=== PATIENT | male | born 1955 | race Caucasian/White ===

== ENCOUNTER 2016-07-09 18:53 | Emergency (ER) | payer MEDICARE, MEDICAID ==
[~2016-07-09 18:53] MED LIST: ASA CHILDREN'S81 MG PO; ASPIRIN EC81 MG PO; BENZTROPINE MESYLATE PO; BUMEX DPS1 MG PO; CARBIDOPA-LEVO1 EAC6 PO; CELEXA DPS20 MG PO; CELEXA20 MG PO; COGENTIN DPS0.5 MG PO; COGENTIN DPS1 MG PO; DEMADEX20 MG PO; FEOSOL-DPS325 MG PO; FERROUS SULFAT325 MG PO; FLOMAX DPS0.4 MG PO; IODOSORB 0.9% TP; IRON325 M1 PO; LEVEMIR100 UNIT/1 SQ; LIPITOR DPS40 MG PO; LIPITOR40 MG PO; LOPRESSOR 25 MG PO; LOPRESSOR DPS50 MG PO; LOPRESSOR50 MG PO; METAMUCIL SF P3.4 GM PO; METOPROLOL TART25 MG PO; MIRALAX PACKET17 GM PO; MIRAPEX DPS0.25 MG PO; PANTOPRAZOLE PO; PLAVIX75 MG PO; PROTONIX40 MG PO; SENOKOT DPS8.6 MG PO; SINEMET 25-1001 EACH PO; SINEMET 25/1001 TAB PO; SYMMETREL-DPS100 MG PO; ZAROXOLYN5 MG PO
--- NOTE | 2016-07-11 23:22 | ER ---
ADMIT: 07/09/2016 RM/LOC: ER [facility] MR#: [id number] 2620 [facility] [address] [place], [place] [address] JOSEPHINE CASTRO [facility] [place] [address] Emergency Room Report SEX: M AGE: 60 : 1955 DATE: 07/09/2016 ADDENDUM: CHIEF COMPLAINT: Right leg pain and swelling and erythema. HISTORY OF PRESENT ILLNESS: This is a 60-year-old. These symptoms started about 3 weeks ago. His right leg has large abscess on it that he says that has been progressively worsening over the last 3 weeks and now his calf is more red and swollen. PAST MEDICAL HISTORY: Diabetes, Parkinson's, neuropathy, and chronic kidney disease stage 4. MEDICATIONS: Please see nurse's note. ALLERGIES: NO KNOWN ALLERGIES. SOCIAL HISTORY: Denies any drug or alcohol use or smoking. FAMILY HISTORY: Noncontributory. REVIEW OF SYSTEMS: CONSTITUTIONAL: Denies any fevers, chills, or sweats. CARDIOVASCULAR/RESPIRATORY: Denies any chest pain or shortness of breath. GASTROINTESTINAL/GENITOURINARY: Denies any nausea, vomiting, or diarrhea. MUSCULOSKELETAL: The only complaint is this abscess on his right lower leg and the swelling of the lower leg. All systems otherwise negative. PHYSICAL EXAMINATION: VITAL SIGNS: Blood pressure 127/66, pulse is 112, respirations 21, temperature is 98.7 tympanic, saturation of oxygen 96% on room air. GENERAL APPEARANCE: He is in no acute distress and alert. HEENT: Pharynx is moist with no tonsillar swelling or exudate. NECK: Supple. HEART: Slightly tachycardic, but no murmurs, rubs, or gallops. LUNGS: CTA bilaterally. No wheezes, rales, or rhonchi. ABDOMEN: Soft, nontender. SKIN: When examining his right lower leg, he is slightly erythemic and warm. There is an obvious abscess to the mid to posterior portion of his calf with minimal swelling. NEURO AND PSYCH: He is alert and oriented x3. Mood and affect normal. COURSE IN THE EMERGENCY ROOM: Sepsis protocol was ordered. He has A positive blood. Chest x-ray is negative for any acute findings. EKG showed sinus tach at a rate of 108. His procalcitonin is 0.11. CMP is normal except for a sodium of 133, BUN is 77, glucose of 215, creatinine 3.7, which is chronic for ADMIT: 07/09/2016 RM/LOC: ER [facility] MR#: [id number] [address] [address] JOSEPHINE CASTRO [address] [place] [address] [place], [place] [address] Emergency Room Report SEX: M AGE: 60 : 1955 him. His MB is 5.2. His troponin is 0.062. He denies any chest pain here at this stay. Lactic acid is normal at 0.9. PT/INR normal. CBC is normal except for hemoglobin of 8.1 and hematocrit 23.8. Ultrasound was done, it is negative for DVT. I did a procedure of the incision and drain. Please see T- sheet for that information. I did speak with Dr. Hamilton regarding this patient. Since he does not have any chest pain, we think the elevated troponin is secondary to his chronic kidney disease. He has not tried any oral antibiotics yet, and his blood work is essentially pretty negative, so at this time we feel okay sending him home. I am sending him home on doxycycline and Keflex. CLINICAL IMPRESSION: Abscess to the right lower leg with cellulitis. TIFFANIE Robles / Fili Rock MD / manan JOB #: [id number] CC: Nolan Torres MD, Attending Physician Med Ray MD, Family Physician
[2016-07-24] MEDS ORDERED: LIPITOR DPS40 MG PO (14:15)
[2016-07-24] MEDS ORDERED: PLAVIX75 MG PO (14:16)
[2016-07-24] MEDS ORDERED: CARBIDOPA-LEVO1 EAC6 PO (14:16)
[2016-07-24] MEDS ORDERED: CELEXA DPS20 MG PO (14:16)
[2016-07-24] MEDS ORDERED: METOPROLOL TART25 MG PO (14:17)
[2016-07-24] MEDS ORDERED: FLOMAX DPS0.4 MG PO (14:17)
[2016-07-24] MEDS ORDERED: PROTONIX40 MG PO (14:17)
[2016-07-24] MEDS ORDERED: MIRAPEX DPS0.25 MG PO (14:17)
[2016-07-24] MEDS ORDERED: ASPIRIN EC81 MG PO (14:18)
[2016-07-24] MEDS ORDERED: METAMUCIL PACK3.4 GM PO (14:18)
[2016-07-24] MEDS ORDERED: DEMADEX20 MG PO (14:18)
[2016-07-24] MEDS ORDERED: MIRALAX PACKET17 GM PO (14:19)
[2016-07-24] MEDS ORDERED: SENOKOT DPS8.6 MG PO (14:19)
[2016-07-24] MEDS ORDERED: ZAROXOLYN5 MG PO (14:19)
[2016-07-24] MEDS ORDERED: LEVEMIR FL100 UNIT/1 SQ (14:19)
[2016-07-24] MEDS ORDERED: KEFLEX-DPS500 MG PO (14:20)
[2016-07-24] MEDS ORDERED: CIPRO DPS250 MG PO (14:20)
[2016-09-01] MEDS ORDERED: HYDROCHLOROTHIA25 MG PO (11:29)
[2016-09-01] MEDS ORDERED: CLEOCIN HCL150 MG PO (11:30)
[2016-09-01] MEDS ORDERED: CITROMA296 ML PO (11:31)
[2016-12-10] MEDS ORDERED: SENOKOT S1 TAB PO (12:06)
[2016-12-10] MEDS ORDERED: GLYCOLAX527 GM PO (12:08)
[2017-02-28] MEDS ORDERED: VITAMIN D50000 UNIT PO (09:37)
[2017-02-28] MEDS ORDERED: AUGMENTIN 500-1 EACH PO (09:38)
== END 2016-07-09 23:40 | disposition home or self-care (01) ==
LOC: ER 18:53
PROC: 0H9KXZZ Drainage of Right Lower Leg Skin, External Approach (ICD-10-PCS; principal; 2016-07-09)
DX: L02.415 Cutaneous abscess of right lower limb (principal); E11.9 Type 2 diabetes mellitus without complications; Z79.82 Long term (current) use of aspirin; Z79.899 Other long term (current) drug therapy

== ENCOUNTER 2016-07-10 15:29 | Inpatient (IN) | payer MEDICARE, MEDICAID ==
[~2016-07-10] VITALS: Ht 170.2 cm; Wt 75.6 kg
--- NOTE | ~2016-07-10 | CO ---
ADMIT: 07/10/2016 RM/LOC: 426 [facility] MR#: [id number] 2620 [facility] [address] [place], [place] [address] JOSEPHINE CASTRO [facility] [place], [place] [address] Consultation SEX: M AGE: 60 : 1955 DATE OF CONSULTATION: 07/12/2016 ATTENDING PHYSICIAN: Med Ray MD CONSULTING PHYSICIAN: Mikie Jo MD SUBJECTIVE: The patient is a 60-year-old male, who has had several week history of swelling and pain to the back of his calf, presented to the ER, where the area was incised and purulence detected. He has been admitted to the hospital the last couple of days on IV antibiotics. His white blood cell count is trending down but he got an MRI scan, which shows an abscess that is in the subcutaneous tissue and even into the Achilles tendon area. PHYSICAL EXAMINATION: Over the dorsal aspect of the patient's Achilles tendon about 1 handbreadth proximal to the calcaneus. There is a swelling and maceration of some skin around an ulcer looking area. He has some purulent drainage. His skin is reddened and is very woody. The patient is a severe diabetic and has significant peripheral vascular disease. X-rays show the soft tissue swelling posteriorly, no problems with the bony anatomy. Again, MRI scan showed an abscess formation and this going from the subcutaneous tissue into the Achilles tendon area. ASSESSMENT AND PLAN: Right posterior soft tissue abscess. At this point in time, the best thing to do is open this area widely, irrigate it, debride it, and pack it and possibly repeat the procedure. Down the line, I would suspect the patient is at high risk for having to turn this into a below the knee amputation. Also, if we were able to get things cleaned up his skin may not live and he may have to have some type of the soft tissue coverage such as a skin graft or wound VAC, I would leave that to General surgery, but the first thing is to open this area, irrigate it, debride it and pack it. The patient understands the risks and benefits of the surgical intervention and desires to proceed. I went over everything with him with an spanish interpreter/translator here in the hospital. Mikie Jo MD/ manan JOB #: [id number] CC: Med Ray MD, Attending Physician Med Ray MD, Family Physician
--- NOTE | ~2016-07-10 | WND ---
ADMIT: 07/10/2016 RM/LOC: 426 [facility] MR#: [id number] [address] [address] JOSE[address] [facility] [place] [address] Wound Care Clinic SEX: M AGE: 60 : 1955 DATE OF VISIT: 07/17/2016 TIME OF VISIT: 45 minutes. REASON FOR VISIT: Possible right heel abscess. HISTORY OF PRESENT ILLNESS: Josephine is a 60-year-old male who was initially seen by Wound Care on July 11, 2016, for an ulcer to his right lower extremity. He was seen in the ER. At which time, they lanced it and noticed a large amount of purulent drainage. On July 10, 2016, when Wound Care saw him, we requested that they just lightly pack the wound bed with ribbon gauze and have the staff change it daily. On July 15, 2016, he went to surgery with Dr. Jo for irrigation and debridement of subcutaneous tissue, fascia, and muscle in the wound VAC was placed. Wound Care is seen today as they are having a difficult time sustaining the VAC seal. OBJECTIVE: VITAL SIGNS: Blood pressure 126/69, pulse 75, pulse ox 92%, respirations 16, temperature 96.1 degrees Fahrenheit. GENERAL: Assessment reveals an alert and oriented 60-year-old male, in no acute distress. He is evaluated sitting in his chair. Wound VAC is currently lost its seal at approximately 11 o'clock. The old wound VAC dressing was removed. Wound bed appears to be 95% granulate, 10% tendon in the middle running longitudinal in the wound bed. No periwound erythema is noted. It bleeds easily. Wound bed is approximately 7.5 cm in length x 3.5 cm in width. There is no odor noted. The patient does have an old scar to his right heel, which is from a previous ulcer where he was followed in Wound Care in 2013. Right lower extremity was cleansed well with antimicrobial soap and water. Then, the wound bed was irrigated copiously with 30 mL of saline. I applied VAC drape to the periwound skin. Then, I applied Adaptic over the tendon and the wound bed. Then, I applied black foam. TRAC pad was applied. Wound VAC was turned on at 125 mmHg continuous. Good seal was noted. ASSESSMENT: Right lower extremity abscess status post incision and drainage in the ER on 07/10/2016 and surgical debridement by Dr. Jo on July 15, 2016. PLAN: We will continue with the wound VAC. I understand the patient is going to discharge to [facility]. They can use Thera-VAC there and change on Friday, Friday, and Friday. I would like to thank Dr. Ray for allowing us to participate in Layne' care. Lucrecia Ramos APRN/ manan JOB #: [id number] CC: Med Ray MD, Attending Physician Med Ray MD, Family Physician
--- NOTE | ~2016-07-10 | WND ---
ADMIT: 07/10/2016 RM/LOC: 426 [facility] MR#: [id number] 2620 [facility] [address] [place] [phone] JOSEPHINE CASTRO [address] [place] [address] [place] [address] Wound Care Clinic SEX: M AGE: 60 : 1955 DATE OF VISIT: 07/11/2016 TIME OF VISIT: 25 minutes. HISTORY OF PRESENT ILLNESS: Josephine is a [id number]-[id number] 60-year-old male, who presents to the emergency room for a 3-week history of right leg pain and swelling with erythema. In the ER, it was noted that he had a large abscess on the posterior right calf. In the emergency room, they lanced it and noted a large amount of purulent fluid. He was admitted to the hospital for severe cellulitis and diabetic ulcer, advanced Parkinson disease, acute on chronic diastolic heart failure exacerbation, chronic kidney disease stage 4 to 5, diabetes type 2, on insulin, and peripheral vascular disease likely complicating his lower extremity wound. PAST MEDICAL HISTORY: 1. Advanced Parkinson disease. 2. Chronic kidney disease stage 4 to 5. 3. Chronic artery disease, current medical management. 4. Diastolic heart failure. 5. Depression. 6. Diabetic retinopathy. 7. Diabetes type 2, recently started on insulin. 8. History of extended spectrum beta-lactamase bacteremia. 9. Chronic recurrent hyperkalemia. 10.Peripheral vascular disease, severe. 11.Anemia of chronic disease. 12.Depression. PAST SURGICAL HISTORY: He had a stent placed in his right lower extremity. FAMILY HISTORY: Negative for diabetes or hypertension. SOCIAL HISTORY: He lives at home with his nephew. He denies smoking or alcohol abuse. He denies illicit drug use. MEDICATIONS: PHYSICAL EXAMINATION: VITAL SIGNS: Blood pressure 125/66, pulse ox 97%, pulse 99, respirations 16, temp 97.5 degrees Fahrenheit on room air. ASSESSMENT: Assessment reveals an alert, 60-year-old male, who is sitting in the recliner and talking on the telephone. He currently has a bloody nose that he is trying to stop. Assessment of the right lower extremity reveals a full-thickness wound on posterior calf. The ulcer itself measures 10 cm in length by 8 cm in width with a dry white/reveles crest, where they lanced it, measures 2.5 cm in length x 2 cm in width x 1.5 cm in depth. There is undermining at 6 o'clock of 1.5 cm, at 9 o'clock of 1.9 cm, and at 3 o'clock of 4 cm. The tissue where it was lanced is colorado/red in color. Foot circumference is 24 cm, ankle circumference is 24 cm, calf circumference is 31 ADMIT: 07/10/2016 RM/LOC: 426 [facility] MR#: [id number] [address] [place] [phone] JOSEPHINE CASTRO [address] [place] [address] Wound Care Clinic SEX: M AGE: 60 : 1955 cm. The patient has 1+ pedal pulse. 2+ pitting edema to the right lower extremity. ASSESSMENT: 1. Abscess to right lower extremity. 2. Diabetic ulcer with severe cellulitis. 3. Chronic kidney disease stage 4 to 5. 4. Diabetes mellitus type 2, recently started on insulin. 5. Peripheral vascular disease. PLAN: Staff will perform wound care dressing changes as I did today at my visit. They will wash his right lower extremity with soap and water. They need to irrigate the wound to the posterior right calf with saline. I would like them to lightly pack the wound with ribbon gauze. They will change daily and as needed. They can apply a Mepilex border dressing. The patient can follow up in outpatient Wound Clinic upon discharge. I would like to thank Dr. Ray for allowing us to participate in his care. Lucrecia Ramos APRN/ manan JOB #: [id number] CC: Med Ray MD, Attending Physician Med Ray MD, Family Physician
--- NOTE | 2016-07-13 09:59 | HP ---
ADMIT: 07/10/2016 RM/LOC: 426 [facility] MR#: [id number] [address] [facility] [address] [place], [place] [address] JOSEPHINE CASTRO [facility] [place], [place] [address] History and Physical SEX: M AGE: 60 : 1955 DATE OF SERVICE: CHIEF COMPLAINT: Swelling in his legs and shortness of breath. HISTORY OF PRESENT ILLNESS: The patient is a 60-year-old, [facility] very well known to me, who reported to clinic today for followup. He had been in the emergency room the evening before. He had a new large swelling in his right lower extremity. Draining purulent fluid. They reportedly lanced it in the ER and he went home on some oral antibiotics. He reports since that time, his swelling is less, but still very prominent. He has worsened edema in his lower extremities over the last two weeks. He has been very adherent with his medications. Unclear but it sounds like he has had a higher sodium diet. Increasing shortness of breath. Increasing abdominal bloating. Orthopnea reported. Decreased mobility. No new chest pain. No fevers. No chills reported. REVIEW OF SYSTEMS: As per HPI. Otherwise, fully reviewed and negative. PAST MEDICAL HISTORY: 1. Advanced Parkinson disease. 2. Chronic kidney disease, stage 4 to 5. 3. Coronary artery disease with current medical management. 4. Diastolic heart failure. 5. Depression. 6. Diabetic retinopathy. 7. Diabetes type 2, recently restarted on insulin. 8. History of extended spectrum beta-lactamase bacteremia. 9. Hyperkalemia. 10.Chronic recurrent hyperkalemia. 11.Peripheral vascular disease, severe. 12.Anemia of chronic disease. 13.Depression. PAST SURGICAL HISTORY: He has had a stent in his right lower extremity. FAMILY HISTORY: Negative for diabetes or hypertension. SOCIAL HISTORY: Lives at home with his nephew. He is nonsmoker. Nondrinking. MEDICATIONS: Please refer to list for full details. He is on: 1. Metoprolol. 2. Protonix. 3. Mirapex. 4. Flomax. 5. Demadex. 6. Aspirin. 7. Hydrochlorothiazide. 8. Plavix. ADMIT: 07/10/2016 RM/LOC: 426 [facility] MR#: [id number] [address] [address] JOSEPHINE CASTRO [address] [place] [address] History and Physical SEX: M AGE: 60 : 1955 9. Celexa. 10.Carbidopa. 11.Levodopa. Please see list for full details. PHYSICAL EXAMINATION: VITAL SIGNS: Temperature 98.6, pulse 100, respiratory rate 20, blood pressure 112/60, and O2 saturation 96% on room air. GENERAL: He is alert and oriented x3. No acute distress. Pleasant as always. Weight was 165 pounds which is 11 pounds higher than his normal. He looks little more uncomfortable. HEENT: Normocephalic, atraumatic. Pupils are equal, round, and reactive to light and accommodation. Extraocular muscles intact. Moist mucous membranes. No icterus. NECK: No lymphadenopathy. Trachea midline. LUNGS: Clear to auscultation bilaterally with some very fine bibasilar rales present posteriorly. HEART: Regular rate and rhythm. No murmurs, rubs, or gallops. ABDOMEN: Soft and nontender. Slightly distended. Normal bowel sounds. EXTREMITIES: He has 2 to 3+ lower extremity edema present bilateral lower extremities. This is much worse than his baseline. He has a large right- sided roughly 6 x 5 cm oval-shaped swelling in his medial distal right leg. Draining purulent material. Mildly tender. Foul-smelling. This is superior to his ankle. NEUROLOGICAL: He has resting parkinsonian tremor, which is about at his baseline. No other new focal deficits noted. LABORATORY AND X-RAY DATA: Lab work drawn yesterday. Creatinine 3.7, BUN 77, AST and ALT within normal limits. Troponin 0.06, hemoglobin 8.1, white count normal. Sodium 133. Lactic acid is normal. Procalcitonin is 0.11. His cultures done from the ER visit last night are preliminarily showing growth present. Moderate white blood cells and some few gram-negative rods. Blood cultures are negative thus far. ASSESSMENT AND PLAN: 1. Severe cellulitis and diabetic ulcer. 2. Advanced Parkinson disease. 3. Acute on chronic diastolic heart failure exacerbation. 4. Chronic kidney disease, stage 4 to 5. 5. Diabetes type 2, on insulin therapy. ADMIT: 07/10/2016 RM/LOC: 426 [facility] MR#: [id number] [address] [place] [address] JOSEPHINE CASTRO [address] [place] [id number] History and Physical SEX: M AGE: 60 : 1955 6. Peripheral vascular disease, likely complicating his lower extremity wound. PLAN: At this point in time, he has had resistant skin infections in the past. We will admit him for IV antibiotics given the severity of his wound and severe peripheral vascular disease. He is close monitoring, wound care, and wound consult. We will ask Nephrology to see him. He is up 11 pounds despite adhering to his medications. I really wonder if he is at the point of dialysis as he may not be responsive to loop diuretics anymore and volume is clearly an issue. He is complicating his care and clearly causing his ulcer and wound to his lower extremity. We will see what Nephrology thinks as well. We will do some IV diuresis tonight. Med Ray MD/ manan JOB #: [id number] CC: Med Ray MD, Attending Physician Med Ray MD, Family Physician
--- NOTE | 2016-07-16 15:25 | OR ---
ADMIT: 07/10/2016 RM/LOC: 426 [facility] MR#: [id number] [address] [facility] [address] [place], [place] [address] JOSEPHINE CASTRO [facility] [place], [place] [address] Operative/Delivery Room Report SEX: M AGE: 60 : 1955 SURGERY DATE: 07/13/2016 SURGEON: Mikie Jo MD PREOPERATIVE DIAGNOSIS: Right lower extremity abscess. POSTOPERATIVE DIAGNOSIS: Right lower extremity abscess. PROCEDURE PERFORMED: Right lower extremity irrigation and debridement and packing of lower extremity abscess. ANESTHESIA: General. ESTIMATED BLOOD LOSS: Minimal. FLUIDS: Per anesthetic record. COMPLICATIONS: None. DRAINS: None. TOURNIQUET TIME: 24 minutes. CONDITION ON DISCHARGE: Patient returned to the recovery room in fair condition. INDICATION: The patient has abscess formation of the right lower extremity, posteriorly along the subcutaneous tissue and into his Achilles tendon. The patient is a severe diabetic. He has been on antibiotics, continues to have collection per MRI scan. The best thing to do is to irrigate and debride this area out and pack it, possibly do repeat irrigation and debridement and possible culture versus wound VAC secondarily. The patient understands the risks and benefits of the surgical intervention and desires to proceed. DESCRIPTION OF THE PROCEDURE: The patient was taken to the OR, underwent general anesthesia, rolled in the prone position. All bony prominences were well padded. A well-padded tourniquet was applied over the right lower extremity. The right lower extremity was prepped and draped in the usual sterile fashion. Tourniquet was inflated to 350 mmHg. An incision was made eclipsing the quarter-sized area where the skin was necrotic and purulent. The total incision was approximately 4-5 inches. The necrotic tissue went all way down to the Achilles tendon and tendon sheath that was adherent to it. I ADMIT: 07/10/2016 RM/LOC: 426 [facility] MR#: [id number] [address] [facility] [address] [place] [address] CASTROJOSEPHINE ALEGRIA [facility] [place], [place] [address] Operative/Delivery Room Report SEX: M AGE: 60 : 1955 debrided the subcutaneous tissue sharply and also the Achilles tendon sharply, removing that tissue. I was able to open the abscess down laterally and also into the Achilles tendon bluntly with my finger. Then, I scraped this out with a curette and also a rongeur cleaning this area. I then thoroughly irrigated this area out with bacitracin solution. I then packed the whole area using Betadine-soaked Kerlix and likely closed the skin, completely closing the edge to edge but keeping some tension on it, using #1 Prolene. Wounds were washed, dried, dressed with sterile 4x4s, ABD, Webril. He was placed in a well-padded posterior fiberglass splint, secured with an Johnson wrap. The tourniquet had been let down. He was reversed from general Anesthesia, transferred back to recovery room in guarded condition due to his medical status. Mikie Jo MD/ manan JOB #: [id number] CC: Med Ray MD, Attending Physician Med Ray MD, Family Physician
--- NOTE | 2016-07-16 15:25 | OR ---
ADMIT: 07/10/2016 RM/LOC: [address] [place] [address] MR#: [id number] [address] [address] JOSEPHINE CASTRO [address] [place] [address] [place] [address] Operative/Delivery Room Report SEX: M AGE: 60 : 1955 SURGERY DATE: 07/15/2016 SURGEON: Mikie Jo MD PREOPERATIVE DIAGNOSIS: Right lower leg wound. POSTOPERATIVE DIAGNOSIS: Right lower leg wound. PROCEDURE PERFORMED: Irrigation and debridement of skin, subcutaneous tissue, fascia, and muscle. Wound VAC was then placed per Wound Care. MECHANICAL ORDNANCE ASSEMBLER: TIFFANIE Almaguer. ANESTHESIA: General. ESTIMATED BLOOD LOSS: Minimal. FLUIDS: Per anesthetic record. COMPLICATIONS: None. DRAINS: None. TOURNIQUET TIME: None. CONDITION ON DISCHARGE: The patient returned to recovery room in guarded condition mainly due to his medical status. INDICATION: The patient had abscess, underwent irrigation and debridement 2 days ago. He presents for repeat irrigation and debridement, possible closure versus wound VAC. The patient understood the risks and benefits of procedure and desired to proceed with operation. DESCRIPTION OF PROCEDURE: The patient was taken to the OR, underwent general anesthesia, rolled in the prone position. All bony prominences were well padded. The right lower extremity had a well-padded tourniquet placed. The right lower extremity was prepped and draped in the usual sterile fashion ADMIT: 07/10/2016 RM/LOC: 6 [facility] MR#: [id number] [address] [address] JOSEPHINE CASTRO [address] [place] [address] Operative/Delivery Room Report SEX: M AGE: 60 : 1955 after the sutures and packing had been removed. I used #15 blade and ellipsed the skin from around the wound. It was approximately 8 cm x 3 cm in width. If I would close this, it would be under too much tension for this to heal and not cause any problems. I debrided the undermining that went along the tendon of the Achilles with a rongeur and a curette. He also had about another 20 cm2 that undermined along the lateral aspect of the wound toward the lateral malleolus. I then thoroughly irrigated this area out with 3 L of bacitracin solution. Actually, my skin bled nicely and it was pink and warm. Thus, I felt a wound VAC would be appropriate for healing. Wound Care came in and applied a wound VAC to the open area in the posterior aspect of his lower leg, and he was reversed from general anesthesia, taken back to recovery room in again guarded condition mainly due to his medical status. Mikie Jo MD/ manan JOB #: [id number] CC: Med Ray MD, Attending Physician Med Ray MD, Family Physician
--- NOTE | 2016-07-17 11:40 | CO ---
ADMIT: 07/10/2016 RM/LOC: 426 [facility] MR#: [id number] [address] [address] JOSEPHINE CASTRO [facility] [place] [address] Consultation SEX: M AGE: 60 : 1955 DATE OF CONSULTATION: 07/11/2016 ATTENDING PHYSICIAN: Med Ray MD CONSULTING PHYSICIAN: Roberto Bonilla MD REASON FOR CONSULTATION: Acute kidney injury and chronic kidney disease stage 4. HISTORY OF PRESENT ILLNESS: The patient is a 60-year-old male who has a history of congestive heart failure as well as chronic kidney disease stage 4 with a baseline creatinine that generally runs in the 2s. He is admitted to the hospital with right lower extremity cellulitis. He is currently getting IV antibiotics. Along with this, he also complains of abdominal bloating. He has some chest pressure and some orthopnea. He denies any fevers, chills, or rigors. Appetite has been okay. Denies any urinary complaints. No other abdominal complaints. REVIEW OF SYSTEMS: A complete review of systems is negative in detail except as mentioned in history of present illness above. PAST MEDICAL HISTORY: 1. Hypertension. 2. Diastolic heart failure. 3. Advanced Parkinson disease. 4. Chronic kidney disease stage 4. 5. Coronary artery disease. 6. Depression. 7. Type 2 diabetes mellitus. 8. ESBL bacteremia. 9. Hyperkalemia. 10.Peripheral vascular disease. 11.Anemia. 12.Depression. SOCIAL HISTORY: He lives with his nephew. Nonsmoker. No alcohol or recreational drug use. MEDICATIONS: Reviewed in the chart. ALLERGIES: NO KNOWN DRUG ALLERGIES. FAMILY HISTORY: No family history of chronic kidney disease or renal replacement therapy. PHYSICAL EXAMINATION: VITAL SIGNS: Temperature 98.2 Fahrenheit, pulse 98, blood pressure 99/50, and saturating 95% on room air. GENERAL: He is comfortable in bed. HEENT: Head is nontraumatic normocephalic. Conjunctivae pale. ADMIT: 07/10/2016 RM/LOC: 426 [facility] MR#: [id number] [address] [address] JOSEPHINE CASTRO [facility] [place] [address] Consultation SEX: M AGE: 60 : 1955 CHEST: Clear to auscultation. CVS: Regular rhythm. S1 and S2. No rubs, murmurs, or gallops. ABDOMEN: Soft, nontender. EXTREMITIES: 2+ right lower extremity edema. He has no edema in his left lower extremity. NEUROLOGIC: Resting tremor and is most pronounced in his upper extremities. LABORATORY DATA: Reviewed. BMP with sodium 136, potassium 3.7, creatinine is 4.1, CO2 of 27, BUN 85, creatinine yesterday was 3.7, calcium is 7.6. Hemoglobin is 6.4. His echocardiogram on 05/28/2016, showed an LVEF of 55% with diastolic heart failure. ASSESSMENT/PLAN: 1. Acute kidney injury on chronic kidney disease stage 4 - this is probably prerenal in etiology in the setting of anemia and his hypotension. His creatinine and BUN are worse today with attempted diuresis. I agree with transfusion for the time being. I will check his urine studies to evaluate the etiology of his acute kidney injury further. I will also cut down on his Lasix to 80 mg twice a day and hopefully aim for even fluid balance. I do think he is a poor candidate for dialysis with his resting Parkinson's tremor which would pose him risk as far as hemodialysis concerned. It would be very challenging for him to perform peritoneal dialysis with his functional disability. I will continue to have these discussions with him moving forward. 2. Anemia - previously has been iron deficient. I will check iron studies and agree with the transfusion for the time being. Thank you for this consultation and allowing me opportunity to participate in this patient's care. Please do not hesitate to contact me with any questions. Roberto Bonilla MD/ manan JOB #: [id number] CC: Med Ray MD, Attending Physician Med Ray MD, Family Physician
[2016-07-24] MEDS ORDERED: LIPITOR DPS40 MG PO (14:15)
[2016-07-24] MEDS ORDERED: CARBIDOPA-LEVO1 EAC6 PO (14:16)
[2016-07-24] MEDS ORDERED: PLAVIX75 MG PO (14:16)
[2016-07-24] MEDS ORDERED: CELEXA DPS20 MG PO (14:16)
[2016-07-24] MEDS ORDERED: FLOMAX DPS0.4 MG PO (14:17)
[2016-07-24] MEDS ORDERED: PROTONIX40 MG PO (14:17)
[2016-07-24] MEDS ORDERED: METOPROLOL TART25 MG PO (14:17)
[2016-07-24] MEDS ORDERED: MIRAPEX DPS0.25 MG PO (14:17)
[2016-07-24] MEDS ORDERED: METAMUCIL PACK3.4 GM PO (14:18)
[2016-07-24] MEDS ORDERED: DEMADEX20 MG PO (14:18)
[2016-07-24] MEDS ORDERED: ASPIRIN EC81 MG PO (14:18)
[2016-07-24] MEDS ORDERED: SENOKOT DPS8.6 MG PO (14:19)
[2016-07-24] MEDS ORDERED: ZAROXOLYN5 MG PO (14:19)
[2016-07-24] MEDS ORDERED: LEVEMIR FL100 UNIT/1 SQ (14:19)
[2016-07-24] MEDS ORDERED: MIRALAX PACKET17 GM PO (14:19)
[2016-07-24] MEDS ORDERED: CIPRO DPS250 MG PO (14:20)
[2016-07-24] MEDS ORDERED: KEFLEX-DPS500 MG PO (14:20)
--- NOTE | 2016-07-26 08:46 | DS ---
ADMIT: 07/10/2016 RM/LOC: 426 [facility] MR#: [id number] 2620 [facility] [address] [place], [place] [address] JOSEPHINE CASTRO [facility] [place] [address] Discharge Summary SEX: M AGE: 60 : 1955 ADMISSION DATE: 07/10/2016 DISCHARGE DATE: 07/18/2016 FINAL DIAGNOSES: 1. Cellulitis and leg abscess status post I and D (incision and drainage). 2. Diabetes type 2. 3. Acute on chronic kidney disease. 4. Parkinson's disease. 5. Acute on chronic diastolic heart failure. 6. Chronic anemia secondary to renal disease. REASON FOR ADMISSION: The patient is a 60-year-old gentleman overall with multiple medical comorbidities. Presented to the office with increasing leg abscess, cellulitis, edema, shortness of breath. Admitted for further stabilization. HOSPITAL COURSE: The patient was admitted. Placed on antibiotics. Underwent multiple I and D's with Orthopedic Surgery. IV antibiotics ultimately able to be switched over to oral. In regards to his fluid status, Nephrology was consulted. Very complicated to assess. Very advanced renal disease. Discussions were had regarding dialysis even. At this time, placed back on oral diuretics after attempts at IV diuresis. Renal function remains borderline. The patient was agreeable to skilled care for wound VAC cares ongoing. Arrangements were made. DISCHARGE MEDICATIONS: Please see discharge MAR which I reviewed. FOLLOWUP: I will see him back to clinic with labs within the week. Med Ray MD/ joan JOB #: [id number] CC: Med Ray MD, Attending Physician Med Ray MD, Family Physician
[2016-09-01] MEDS ORDERED: HYDROCHLOROTHIA25 MG PO (11:29)
[2016-09-01] MEDS ORDERED: CLEOCIN HCL150 MG PO (11:30)
[2016-09-01] MEDS ORDERED: CITROMA296 ML PO (11:31)
[2016-12-10] MEDS ORDERED: SENOKOT S1 TAB PO (12:06)
[2016-12-10] MEDS ORDERED: GLYCOLAX527 GM PO (12:08)
[2017-02-28] MEDS ORDERED: VITAMIN D50000 UNIT PO (09:37)
[2017-02-28] MEDS ORDERED: AUGMENTIN 500-1 EACH PO (09:38)
== END 2016-07-18 13:30 | DRG 981 ==
LOC: 4PCU 15:29
PROVIDERS: ADMIT Internal Medicine
PROC: 30233N1 Transfusion of Nonautologous Red Blood Cells into Peripheral Vein, Percutaneous Approach (ICD-10-PCS; 2016-07-11)
PROC: 0LBN0ZZ Excision of Right Lower Leg Tendon, Open Approach (ICD-10-PCS; principal; 2016-07-13)
PROC: 0KBS0ZZ Excision of Right Lower Leg Muscle, Open Approach (ICD-10-PCS; 2016-07-15)
DX: E11.622 Type 2 diabetes mellitus with other skin ulcer (principal); I50.33 Acute on chronic diastolic (congestive) heart failure; N18.4 Chronic kidney disease, stage 4 (severe); E11.22 Type 2 diabetes mellitus with diabetic chronic kidney disease; N17.9 Acute kidney failure, unspecified; L02.415 Cutaneous abscess of right lower limb; G20 Parkinson's disease; L03.115 Cellulitis of right lower limb; I13.0 Hypertensive heart and chronic kidney disease with heart failure and stage 1 through stage 4 chronic kidney disease, or unspecified chronic kidney disease; M65.061 Abscess of tendon sheath, right lower leg; D50.9 Iron deficiency anemia, unspecified; I25.10 Atherosclerotic heart disease of native coronary artery without angina pectoris; F32.9 Major depressive disorder, single episode, unspecified; E11.319 Type 2 diabetes mellitus with unspecified diabetic retinopathy without macular edema; I73.9 Peripheral vascular disease, unspecified; D63.8 Anemia in other chronic diseases classified elsewhere; Z95.820 Peripheral vascular angioplasty status with implants and grafts; Z79.4 Long term (current) use of insulin; Z79.02 Long term (current) use of antithrombotics/antiplatelets; Z79.82 Long term (current) use of aspirin; D63.1 Anemia in chronic kidney disease

== ENCOUNTER 2016-07-18 10:35 | Inpatient (IN) | payer MEDICARE, MEDICAID ==
[~2016-07-18] VITALS: Ht 170.2 cm; Wt 72.2 kg
[2016-07-24] MEDS ORDERED: LIPITOR DPS40 MG PO (14:15)
[2016-07-24] MEDS ORDERED: PLAVIX75 MG PO (14:16)
[2016-07-24] MEDS ORDERED: CELEXA DPS20 MG PO (14:16)
[2016-07-24] MEDS ORDERED: CARBIDOPA-LEVO1 EAC6 PO (14:16)
[2016-07-24] MEDS ORDERED: PROTONIX40 MG PO (14:17)
[2016-07-24] MEDS ORDERED: FLOMAX DPS0.4 MG PO (14:17)
[2016-07-24] MEDS ORDERED: METOPROLOL TART25 MG PO (14:17)
[2016-07-24] MEDS ORDERED: MIRAPEX DPS0.25 MG PO (14:17)
[2016-07-24] MEDS ORDERED: ASPIRIN EC81 MG PO (14:18)
[2016-07-24] MEDS ORDERED: DEMADEX20 MG PO (14:18)
[2016-07-24] MEDS ORDERED: METAMUCIL PACK3.4 GM PO (14:18)
[2016-07-24] MEDS ORDERED: SENOKOT DPS8.6 MG PO (14:19)
[2016-07-24] MEDS ORDERED: MIRALAX PACKET17 GM PO (14:19)
[2016-07-24] MEDS ORDERED: ZAROXOLYN5 MG PO (14:19)
[2016-07-24] MEDS ORDERED: LEVEMIR FL100 UNIT/1 SQ (14:19)
[2016-07-24] MEDS ORDERED: KEFLEX-DPS500 MG PO (14:20)
[2016-07-24] MEDS ORDERED: CIPRO DPS250 MG PO (14:20)
[2016-09-01] MEDS ORDERED: HYDROCHLOROTHIA25 MG PO (11:29)
[2016-09-01] MEDS ORDERED: CLEOCIN HCL150 MG PO (11:30)
[2016-09-01] MEDS ORDERED: CITROMA296 ML PO (11:31)
[2016-12-10] MEDS ORDERED: SENOKOT S1 TAB PO (12:06)
[2016-12-10] MEDS ORDERED: GLYCOLAX527 GM PO (12:08)
[2017-02-28] MEDS ORDERED: VITAMIN D50000 UNIT PO (09:37)
[2017-02-28] MEDS ORDERED: AUGMENTIN 500-1 EACH PO (09:38)
== END 2016-07-23 16:21 | disposition home or self-care (01) | DRG 603 ==
LOC: SNU 10:35
PROVIDERS: ADMIT Internal Medicine
DX: L02.415 Cutaneous abscess of right lower limb (principal); N18.4 Chronic kidney disease, stage 4 (severe); E11.22 Type 2 diabetes mellitus with diabetic chronic kidney disease; L03.119 Cellulitis of unspecified part of limb; I50.9 Heart failure, unspecified; D64.9 Anemia, unspecified; G20 Parkinson's disease; I25.10 Atherosclerotic heart disease of native coronary artery without angina pectoris; F32.9 Major depressive disorder, single episode, unspecified; E11.319 Type 2 diabetes mellitus with unspecified diabetic retinopathy without macular edema; I73.9 Peripheral vascular disease, unspecified; D63.8 Anemia in other chronic diseases classified elsewhere; Z79.4 Long term (current) use of insulin; Z11.1 Encounter for screening for respiratory tuberculosis

== ENCOUNTER 2016-08-23 12:08 | Emergency (ER) | payer MEDICARE, MEDICAID ==
[~2016-08-23 12:08] MED LIST changes: +CIPRO DPS250 MG PO; +KEFLEX-DPS500 MG PO; +LEVEMIR FL100 UNIT/1 SQ; +METAMUCIL PACK3.4 GM PO
--- NOTE | 2016-08-30 13:37 | ER ---
ADMIT: 08/23/2016 RM/LOC: ER [facility] MR#: [id number] 2620 [facility] [address] [place], [place] [address] [facility] [address] [place] [address] [place] [address] Emergency Room Report SEX: M AGE: 60 : 1955 DATE: 08/23/2016 ADDENDUM: This patient comes to the ER because he has had a nosebleed on and off for the last 8 hours. He states he has been putting pressure, but it has not stopped. He has no pain, currently seeing a kidney specialist. On physical exam, he does have bleeding coming from the left nostril. I placed pressure to the area, saw that the blood was coming from Kiesselbach plexus. I then packed the nose with lidocaine, adrenaline, and Afrin. I used a cautery stick and had good hemostasis. I did do blood work on the patient, and his hemoglobin was 8. He did not speak any Kyrgyz. I did look up past hemoglobins that he had and they all were around 8 as well. He currently has an appointment today with his doctor at 3, and I was able to get him out of here in time to see his doctor. His kidney function was also elevated at 3.1, but he states that is also normal for him as he has kidney disease. We did discharge him in time for his doctor's appointment. Please see my sheet. TIFFANIE Hunt / Edi Garcia MD / manan JOB #: [id number] CC: Edi Garcia MD, Attending Physician Med Ray MD, Family Physician
[2016-09-01] MEDS ORDERED: HYDROCHLOROTHIA25 MG PO (11:29)
[2016-09-01] MEDS ORDERED: CLEOCIN HCL150 MG PO (11:30)
[2016-09-01] MEDS ORDERED: CITROMA296 ML PO (11:31)
[2016-12-10] MEDS ORDERED: SENOKOT S1 TAB PO (12:06)
[2016-12-10] MEDS ORDERED: GLYCOLAX527 GM PO (12:08)
[2017-02-28] MEDS ORDERED: VITAMIN D50000 UNIT PO (09:37)
[2017-02-28] MEDS ORDERED: AUGMENTIN 500-1 EACH PO (09:38)
== END 2016-08-23 15:03 | disposition home or self-care (01) ==
LOC: ER 12:08
DX: R04.0 Epistaxis (principal); E11.9 Type 2 diabetes mellitus without complications; Z86.2 Personal history of diseases of the blood and blood-forming organs and certain disorders involving the immune mechanism; Z79.82 Long term (current) use of aspirin; Z79.899 Other long term (current) drug therapy

== ENCOUNTER 2016-08-26 11:03 | Inpatient (IN) | payer MEDICARE, MEDICAID ==
[~2016-08-26] VITALS: Ht 170.2 cm; Wt 73.6 kg
--- NOTE | ~2016-08-26 | WND ---
ADMIT: 08/26/2016 RM/LOC: 417 [facility] MR#: [id number] [address] [address] JOSEPHINE CASTRO [address] [place] [address] [place] [address] Wound Care Clinic SEX: M AGE: 60 : 1955 DATE OF VISIT: 08/27/2016 TIME OF VISIT: 30 minutes. HISTORY OF PRESENT ILLNESS: Josephine is a 60-year-old male, who was admitted through the emergency room on August 26, 2016 from the ER for increasing weakness and shortness of breath. We did see him in the Wound Clinic on August 26, 2016, at which time, he was complaining of chest pain. He has been followed in outpatient wound clinic since the beginning of July 2016. He underwent an incision and drainage of an abscess on the posterior right lower extremity by Dr. Jo on July 13 and then again on July 15, 2016. After the surgery, he had a wound VAC placed. He currently is not using the wound VAC, but was having home health care in his home 3 times weekly doing the dressing changes. During Wound Clinic today, we felt that there was increased drainage as well as a lot of yellow slough in the wound bed, so we did an aerobic wound culture. The results of that are pending. PAST MEDICAL HISTORY: 1. Chronic kidney disease, level 4. 2. Severe advanced Parkinson disease. 3. Chronic diastolic heart failure. 4. Type 2 diabetes mellitus. 5. History of peripheral vascular disease. 6. Coronary artery disease. 7. Diabetic neuropathy. 8. History of recurrent chronic hyperkalemia. 9. Anemia of chronic disease. 10.Depression. PAST SURGICAL HISTORY: He has had a stent in his right lower extremity. FAMILY HISTORY: Negative for diabetes or hypertension. SOCIAL HISTORY: He lives with his nephew. He denies any tobacco, alcohol, or illicit drug use. MEDICATIONS: 1. Tamsulosin. 2. Carbidopa/levodopa. 3. Pantoprazole. 4. Atorvastatin. 5. Metoprolol. 6. Clopidogrel. 7. Furosemide. 8. Hydrochlorothiazide. 9. Pramipexole. 10.Levemir 18 units daily. REVIEW OF SYSTEMS: The patient denies any fever or chills. He does feel ADMIT: 08/26/2016 RM/LOC: 417 [facility] MR#: [id number] [address] [address] JOSEPHINE CASTRO [address] [place] [address] [place] [address] Wound Care Clinic SEX: M AGE: 60 : 1955 nauseous. He has not thrown up. He feels bloated. He feels weak. He currently is denying chest pain. States the shortness of breath has gotten a little bit better. PHYSICAL EXAMINATION: Assessment reveals an intact gauze dressing to his right lower extremity. Upon removal, it is noted the wound bed measures 7.5 cm in length x 4.4 cm in width x 0.3 cm at 3 o'clock. Foot circumference 22 cm, ankle circumference 23 cm, calf circumference 30.5 cm. He has a moderate amount of exudate noted. It is a brown color of exudate. There is foul odor noted. ASSESSMENT: 1. Wound abscess to right posterior calf status post incision and drainage on July 16. 2. Peripheral vascular disease. 3. Diabetes mellitus. PLAN: His right lower extremity was washed well with warm soapy water, rinsed, and patted dry. I would like to have the nursing staff apply Dakin's moistened gauze followed by an ABD and secure with Nolberto. They will change this daily. I would like him to continue to wear his Tubigrip for some compression. An aerobic wound culture as noted was done on August 26, 2016. I would like them to consult ortho TIFFANIE, Debbie or Reid for right leg ulcer as they have a note in the chart that they were wanting to see him. Lucrecia Ramos APRN/ manan JOB #: [id number] CC: Med Ray MD, Attending Physician Med Ray MD, Family Physician
--- NOTE | ~2016-08-26 | WND ---
ADMIT: 08/26/2016 RM/LOC: 417 [facility] MR#: [id number] 2620 [facility] [address] [place], [place] [address] JOSEPHINE CASTROO [facility] [place] [address] Wound Care Clinic SEX: M AGE: 60 : 1955 DATE OF VISIT: 08/26/2016 TIME OF VISIT: 20 minutes. REASON FOR VISIT: Right posterior calf ulceration. HISTORY OF PRESENT ILLNESS: Josephine is a 60-year-old, Arabic-speaking male, who [facility] and management of an ulcer that he has in the posterior surface of his right calf. Wound Care has been following him since July 11, 2016 for an abscess that later went on for incision and drainage with VAC placement on July 15, 2016. He recently had his wound VAC discontinued. We placed TheraBond on his ulcer on August 22, 2016 and told home health to not see him until after we see him on Friday, August 26, 2016, to see how the TheraBond worked. As he presents to the emergency room, he is complaining of chest pain stating that it is substernal and over his left chest and feels heavy and tight. He is currently rating it a 6 to 7/10. He says that onset started 4 days ago, but at that time, it was intermittent. He states now it is constant since Friday and is radiating into his left shoulder. He reports increasing fatigue and feels like he is bloated. He also reports shortness of breath that is worsening. He denies any nausea, vomiting, or diaphoresis. He cannot say anything that makes it better or worse. He does see a bung dropper and in fact has an appointment on august 29 with the bung dropper that comes from [facility], he does not know his name though. OBJECTIVE: VITAL SIGNS: Temperature 97.9 degrees Fahrenheit, blood pressure 113/62, pulse 105, respirations 20, and pulse ox 100% on room air. EXTREMITIES: Assessment of his right lower extremity reveals an intact TheraBond dressing. It has a moderate amount of odor noted. There is foul brown exudate noted. There is periwound maceration. Wound bed today measures 7.5 cm in length x 4.4 cm in width x 0.3 cm at 3 o'clock. Foot circumference 22 cm, ankle circumference 23 cm, calf circumference 30.5 cm. ADMIT: 08/26/2016 RM/LOC: [address] [place] [address] MR#: [id number] [address] [address] JOSEPHINE CASTRO [address] [place] [address] Wound Care Clinic SEX: M AGE: 60 : 1955 ASSESSMENT: 1. Wound abscess to right posterior calf status post incision and Drainage. 2. Chest pain. PLAN: His right lower extremity was cleansed well with warm soapy water, rinsed and patted dry. We placed a TheraBond. Dressing on the wound and sent him to the emergency room for evaluation of his chest pain. I did contact his home health nurse Nay at [phone] was contacted and told him that he was discharged to the emergency room, but should he go home, he is going to be on daily dressing changes using Dakin's. Wound Care would like to see him on August 29, 2016 at 11 a.m. Lucrecia Ramos APRN/ manan JOB #: [id number] CC: Med Ray MD, Attending Physician Med Ray MD, Family Physician
--- NOTE | 2016-08-26 13:58 | NUR ---
LILLY HERE TO INTERPRET FOR PT. PT IS VERY FATIGUED, THIS STARTED ON FRIDAY ALONG WITH A NOSE BLEED HE WAS SEEN IN ER FOR. HE HAD A NOSE BLEED FROM [id number]. PT STATES AFTER HE WAS RELEASED FROM ER, HE DEVELOPED CHEST PAIN. OVER THE WEEKEND THE CHEST PAIN HAS BEEN GETTING WORSE AND OF TODAYS VISIT HE STATES HE FEELS SOMTHING HEAVY ON CHEST, RATES PAIN 7/10 AND STATES HE FEELS PAIN IN HIS LEFT SHOULDER. PT STATES NOTHING MAKES THE PAIN WORSE, NOTHING MAKES IT BETTER. PCP CHAS AT [facility] July PT WILL SEE TOOL DESIGNER IN [place], HE DOES NOT KNOW HIS NAME PT SENT TO ER FOR NALLELY
--- NOTE | 2016-08-27 16:07 | HP ---
ADMIT: 08/26/2016 RM/LOC: 417 [facility] MR#: [id number] 2620 [facility] [address] [place], [place] [address] JOSEPHINE CASTRO [facility] [place] [address] History and Physical SEX: M AGE: 60 : 1955 DATE OF SERVICE: CHIEF COMPLAINT: Weakness. HISTORY OF PRESENT ILLNESS: The patient is a very pleasant 60[facility], well known to me from clinic, who presented to the emergency room today with increased weakness and shortness of breath. Prior to this, yesterday, he had been in with severe epistaxis. He is just feeling worse. More shortness of breath. More lethargy. He had been over to Wound Care and they reportedly had said his open wound on his right lower extremity was worsened. Foul-smelling. The patient currently denies any chest pain. Just reports feeling bad. No new shortness of breath per se. No new abdominal pain. Decreased oral intake. No fevers. No chills. He reports he has been taking his medications as prescribed. He does not take his insulin, however, due to his severe Parkinson disease. PAST MEDICAL HISTORY: 1. CKD level 4. 2. Severe advanced Parkinson's disease. 3. Chronic diastolic heart failure. 4. Type 2 diabetes. 5. History of peripheral vascular disease. 6. Coronary artery disease. 7. Diabetic retinopathy. 8. History of recurrent chronic hyperkalemia. 9. Anemia of chronic disease. 10.Depression. PAST SURGICAL HISTORY: He has had a stent in his right lower extremity. FAMILY HISTORY: Negative for diabetes or hypertension. SOCIAL HISTORY: He lives at home with his nephew, nonsmoking, non-drinking. MEDICATIONS: Please refer to list for full details. He is on: 1. Tamsulosin. 2. Carbidopa/levodopa. 3. Pantoprazole. 4. Atorvastatin. 5. Metoprolol. 6. Clopidogrel. 7. Torsemide. 8. Hydrochlorothiazide. 9. Pramipexole. 10.Levemir 18 units daily. REVIEW OF SYSTEMS: As per HPI. Otherwise, completely reviewed and negative. PHYSICAL EXAMINATION: VITAL SIGNS: Temperature 97.5, pulse 86, respiratory ADMIT: 08/26/2016 RM/LOC: 417 [facility] MR#: [id number] [address] [address] JOSEPHINE CASTRO [facility] [place] [address] History and Physical SEX: M AGE: 60 : 1955 rate 16, blood pressure 126/59, O2 saturation 92% on room air. GENERAL: He is alert and oriented x3. No acute distress. Slightly disheveled and more ill-appearing than usual. Sallow appearing. HEENT: Normocephalic, atraumatic. Pupils equal, round, and reactive to light and accommodation. Extraocular muscles intact. Dry mucous membranes. No icterus. NECK: No lymphadenopathy. Soft, supple. Trachea midline. LUNGS: Clear to auscultation bilaterally with some fine bibasilar rales. HEART: Regular rate and rhythm. No murmurs, rubs, or gallops. ABDOMEN: Soft, nontender, and nondistended. Bowel sounds present. Slightly distended compared to usual, but overall no ascites real palpable. EXTREMITIES: No cyanosis or clubbing. He has trace edema present in bilateral lower extremities, relatively unchanged. SKIN: He has his right-sided lower extremity posterior distal leg wound. Currently dressed from Wound Care. No leakage through bandage at this time. Otherwise not fully visualized due to Wound Care just dressed it today. They have already assessed it. NEUROLOGICAL: He has his parkinsonian tremor, which is about at his baseline. No new focal deficits. SKIN: No rashes noted. LABORATORY AND X-RAY DATA: His creatinine is 3.5, BUN is 92, AST 36, blood glucose 297, troponin 3.34, hemoglobin 6.5, white count 8.3, platelets 155, lactic acid 1.4, procalcitonin 0.11. Ammonia level is 21. His x-ray shows some cardiomegaly with mild interstitial edema. His EKG, he has sinus rhythm. No acute ST-segment abnormalities. Occasional PVCs. Some possible mild lateral ST depressions, V5 and V6. ASSESSMENT: 1. Anemia secondary to acute blood loss as well as chronic kidney disease. 2. Positive troponin with history of coronary artery disease. 3. Diabetes type 2. 4. Acute kidney injury on chronic kidney disease. 5. Cellulitis. 6. Chronic diastolic heart failure. 7. Parkinsonian disease, severe. PLAN: At this point in time, we will transfuse him. We will trend his troponin. I suspect it is more secondary to demand ischemia in addition to his renal function issues. We will see where he trends. Hold off on heparin for now given his lack of symptoms and overall risk of worsening his epistaxis and bleeding. If his troponin continues to trend up, we will have Cardiology ADMIT: 08/26/2016 RM/LOC: 417 [facility] MR#: [id number] [address] [place] [address] JOSEPHINE CASTRO [address] [place] [address] History and Physical SEX: M AGE: 60 : 1955 see him. From my discussions in the past with him, they have not wanted to do heart catheterization due to his comorbidities and so likely continue to pursue medical management. In regard to his renal function, we will continue to try to keep him euvolemic. He is up a few pounds from his last hospitalization. I suspect his increased creatinine may be due to his anemia. We will see how he does after responding to some blood. He has worsened cellulitis in the right lower extremity according to Wound Care. We will have them continue to follow. Check an x-ray to look for osteomyelitis. We will start antibiotics IV. Med Ray MD/ manan JOB #: [id number] CC: Med Ray MD, Attending Physician Med Ray MD, Family Physician
--- NOTE | 2016-08-30 10:36 | CO ---
ADMIT: 08/26/2016 RM/LOC: 417 [facility] MR#: [id number] [address] [address] JOSEPHINE LAYNE [facility] [place] [address] Consultation SEX: M AGE: 60 : 1955 DATE OF CONSULTATION: 08/27/2016 ATTENDING PHYSICIAN: Med Ray MD CONSULTING PHYSICIAN: Sonal Ramirez MD REASON FOR CONSULTATION: Elevated troponin. HISTORY OF PRESENT ILLNESS: Mr. Layne is a pleasant 60-year-old, Latin- [place] male, whom we were asked to consult on at the request of Dr. Ray for the problem of abnormal troponin. He presented yesterday with some chest discomfort and a nose bleed. He says this chest discomfort is similar to what he has had in the past. It comes on with minimal exertion. It was non radiating. Denies any diaphoresis or dyspnea with this. It is similar to the pain he has had in the past. It is essentially resolved now. There is some left lingering aspect of that. He denies any fevers or chills, cough or cold symptoms, any weight gain, weight loss. PAST MEDICAL HISTORY: 1. Pertinent for presumed coronary disease with non ST-elevation ND. 2. Chronic renal insufficiency stage 4. 3. Carotid disease. 4. Peripheral vascular disease with stent. 5. Diabetes. 6. Cellulitis. 7. Cardiomyopathy. 8. Chronic diastolic heart failure. 9. Hypertension. MEDICATIONS: On consultation include: 1. Demadex 80 mg b.i.d. 2. Flomax 0.4 at bedtime. 3. Lipitor 40 at bedtime. 4. Lopressor 25 b.i.d. 5. Mirapex 0.25 q.i.d. 6. Plavix 75 mg a day. 7. Protonix 40 mg b.i.d. 8. Sinemet 25/100 q.i.d. 9. Zaroxolyn 5 q.a.m. 10.Levemir as directed. 11.Nitroglycerin drip as needed. 12.Zosyn. ALLERGIES: NONE KNOWN. FAMILY HISTORY: Reviewed. No heritable diseases. There is no change from his previous HPI. ADMIT: 08/26/2016 RM/LOC: 417 [facility] MR#: [id number] [address] [address] JOSEPHINE LAYNE [address] [place] [address] Consultation SEX: M AGE: 60 : 1955 SOCIAL HISTORY: He is disabled because of his Parkinson's. Former smoker. ALLERGIES: NONE KNOWN. REVIEW OF SYSTEMS: A full 12-point review of systems is reviewed and deemed to be negative except the pertinently dictated positives HPI. PHYSICAL EXAMINATION: VITAL SIGNS: His blood pressure is 120/67 with a pulse of 100. He is afebrile. His weight is 160 pounds. GENERAL: He is a pleasant, well-nourished, well-developed white male, in no acute distress. Alert and oriented x3. NECK: Shows brisk carotid upstrokes. No JVD or bruit. CHEST: Clear. HEART: Regular. ABDOMEN: Soft. EXTREMITIES: No cyanosis, clubbing, edema. NEUROLOGIC: Exam shows fine tremor consistent with Parkinson's. LABORATORY AND ANCILLARY DATA: Shows a sodium 134, potassium 4.4, BUN 98, creatinine 3.7, glucose is 234, magnesium is 2.4. Troponin is 3.6, and it had previously been 3.49 and 3.34 before that. Hemoglobin is 8.2, on admission it was 6, platelet count of 164,000, and white blood cell count 7.8. EKG shows no evidence of ischemia or infarction. ASSESSMENT AND PLAN: 1. Non NB-awizextzf-zqtpdnxshb infarction. 2. Coronary artery disease. 3. Anemia. 4. Chronic renal insufficiency stage 4. 5. Diabetes. 6. Cellulitis. 7. Parkinson's. We will treat his non-STEMI medically again. The patient is already on Plavix, statin, and beta-jose de jesus. With his anemia and epistaxis, we will hold off on heparin. No cath secondary to anemia and chronic renal insufficiency. Presumed that he has coronary artery disease, this is likely due to a demand type ischemia from his severe anemia, but we will continue to treat him medically, trend his enzymes. Echocardiogram in May was normal, see no need to repeat it at this time. Sonal Ramirez MD/ manan JOB #: [id number] CC: Med Ray MD, Attending Physician Med Ray MD, Family Physician
--- NOTE | 2016-08-30 17:07 | ER ---
ADMIT: 08/26/2016 RM/LOC: 417 [facility] MR#: [id number] 2620 [facility] [address] [place], [place] [address] JOSEPHINE CASTRO [facility] [place] [address] Emergency Room Report SEX: M AGE: 60 : 1955 DATE: 08/26/2016 ADDENDUM: The patient is a 60-year-old, male coming in with a little chest pain and little shortness of breath. He is tired. This gentleman has multiple medical comorbidities including Parkinson's, chronic kidney disease, coronary artery disease, diastolic heart failure, depression, diabetic retinopathy, diabetes, hyperkalemia, peripheral vascular disease, and anemia of chronic disease. His PT and PTT were negative. His chemistry did show creatinine of 3.5 and that is where he normally runs. He has glucose of 259. Albumin 2.8. He has a significant bump in his troponin of 3.340 but his EKG otherwise looks normal. Lactic acid was 1.4. He does not again have any acute findings on his EKG. Chest x-ray, a little bit of cardiomegaly. DIAGNOSES: 1. Elevated troponin. 2. Anemia of 6.5, which we transfused. 3. Chronic renal failure. 4. Diabetes. TREATMENT: At this time, I spoke with Dr. Ray. We started to transfuse him 1 unit. We did ultrasound to see if he has significant amount of ascites in his belly. That is pending at this time but Dr. Ray will admit him. CONDITION ON DISCHARGE: Serious but stable at this time. Nolan Torres MD/ manuell JOB #: [id number] CC: Med Ray MD, Attending Physician Med Ray MD, Family Physician
--- NOTE | 2016-08-31 07:15 | DS ---
ADMIT: 08/26/2016 RM/LOC: 417 [facility] MR#: [id number] [address] [address] JOSEPHINE CASTRO [address] [place] [address] Discharge Summary SEX: M AGE: 60 : 1955 ADMISSION DATE: 08/26/2016 DISCHARGE DATE: 08/30/2016 CONSULTATIONS: Cardiology. FINAL DIAGNOSES: 1. Cellulitis, MRSA (methicillin-resistant Staphylococcus aureus). 2. Acute blood loss anemia, chronic renal anemia secondary to epistaxis. 3. Chronic kidney disease, stage IV with acute kidney injury. 4. Diastolic heart failure. 5. Non ST-elevation DC (myocardial infarction) secondary to demand ischemia from anemia. 6. Parkinson disease, severe. 7. Diabetes. 8. Coronary artery disease. 9. Peripheral vascular disease. REASON FOR ADMISSION: The patient is a 60-year-old gentleman, who was sent to the emergency room with weakness. Found to be profoundly anemic. Elevated troponin. Worsening cellulitis. Admitted for further stabilization. HOSPITAL COURSE: The patient was admitted. Placed on IV antibiotics. Ultimately switched over to oral. Grew out MRSA susceptible to clindamycin. In regards to her troponin, it overall did not raise too much. It kind of came down on its own and his chest pain symptoms resolved with resolution of his anemia. Goal was to keep his hemoglobin greater than 10 as an outpatient. In regards to his kidney disease, his creatinine did trend upward. Overall, remained relatively stable prior to discharge. We will keep him on oral ADMIT: 08/26/2016 RM/LOC: 417 [facility] MR#: [id number] [address] [address] JOSEPHINE CASTRO [address] [place] [address] Discharge Summary SEX: M AGE: 60 : 1955 diuretics. In regards to his diabetes, was given insulin here. Adamantly refuses to take it at home as he is unable to get due to his Parkinson's. We will get the family to give it to him. DISCHARGE INSTRUCTIONS: He will discharge to home. Close followup with me in a week with repeat labs. We will continue to follow up with wound care as an outpatient. Please see discharge MAR for full details. Notably, he will be on clindamycin t.i.d. for 14 days. He is also encouraged to do nasal saline spray at home a couple sprays as needed to keep from getting the recurrent epistaxis. Med Ray MD/ rohitg JOB #: [id number] CC: Med Ray MD, Attending Physician Med Ray MD, Family Physician
[2016-09-01] MEDS ORDERED: HYDROCHLOROTHIA25 MG PO (11:29)
[2016-09-01] MEDS ORDERED: CLEOCIN HCL150 MG PO (11:30)
[2016-09-01] MEDS ORDERED: CITROMA296 ML PO (11:31)
--- NOTE | 2016-09-03 15:15 | CO ---
ADMIT: 08/26/2016 RM/LOC: 417 [facility] MR#: [id number] [address] [address] JOSEPHINE CASTRO [facility] [place] [address] Consultation SEX: M AGE: 60 : 1955 DATE OF CONSULTATION: 08/28/2016 ATTENDING PHYSICIAN: Med Ray MD CONSULTING PHYSICIAN: Mikie Jo MD SUBJECTIVE: Patient is a 60-year-old male, who is status post irrigation and debridement of a right lower leg wound in his posterior calf area at the musculotendinous junction of the Achilles. In July, he had an irrigation and debridement, packing and irrigation and debridement and wound VAC placed. He has not shown back up the clinic. He was admitted to the hospital for some cardiac issues and anemia. I was asked to look at his wound. The patient has a large area of granulation, approximately 3 to 4 inches x 1.5 inch. As he stands on it, I cannot palpate any areas of fluctuance. There is no real drainage, just some superficial serous fluid where the granulation tissue is as would be expected. His white blood cell count is normal. Somebody did do some swabs of the wound which have grown out some Staph aureus and gram- negative rods. I believe this would be expected as this is probably colonized. ASSESSMENT AND PLAN: Right leg wound. At this point in time, his leg wound appears to be healing in nicely from what I did almost 2 months ago. He has good granulation tissue. He does have some colonization of the granulation tissue as it would be expected from normal skin efrain. From my standpoint, I do not feel there is anything else I can do from a surgical intervention. There are no fluctuant areas of abscesses. No erythema or redness that I would be concerned about. It may be worthwhile getting General Surgery's opinion whether he would be a candidate for some skin grafting over this granulation tissue down this area or if some antibiotics for his colonization would be warranted prior to any type of the skin grafting, but from my standpoint, I do not have anything from an orthopedic surgical intervention to offer right now. Mikie Jo MD/ manan JOB #: [id number] CC: Med Ray MD, Attending Physician Med Ray MD, Family Physician
[2016-12-10] MEDS ORDERED: SENOKOT S1 TAB PO (12:06)
[2016-12-10] MEDS ORDERED: GLYCOLAX527 GM PO (12:08)
[2017-02-28] MEDS ORDERED: VITAMIN D50000 UNIT PO (09:37)
[2017-02-28] MEDS ORDERED: AUGMENTIN 500-1 EACH PO (09:38)
== END 2016-08-30 12:40 | disposition home health service (06) | DRG 811 ==
LOC: ER 11:03 → 4PCU 14:00
PROVIDERS: ADMIT Internal Medicine
PROC: 30233N1 Transfusion of Nonautologous Red Blood Cells into Peripheral Vein, Percutaneous Approach (ICD-10-PCS; principal; 2016-08-26)
DX: D62 Acute posthemorrhagic anemia (principal); I21.4 Non-ST elevation (NSTEMI) myocardial infarction; N18.4 Chronic kidney disease, stage 4 (severe); I42.9 Cardiomyopathy, unspecified; N17.9 Acute kidney failure, unspecified; I50.32 Chronic diastolic (congestive) heart failure; I13.0 Hypertensive heart and chronic kidney disease with heart failure and stage 1 through stage 4 chronic kidney disease, or unspecified chronic kidney disease; L02.415 Cutaneous abscess of right lower limb; L03.115 Cellulitis of right lower limb; E11.22 Type 2 diabetes mellitus with diabetic chronic kidney disease; G20 Parkinson's disease; R04.0 Epistaxis; B95.61 Methicillin susceptible Staphylococcus aureus infection as the cause of diseases classified elsewhere; I25.10 Atherosclerotic heart disease of native coronary artery without angina pectoris; F32.9 Major depressive disorder, single episode, unspecified; E11.319 Type 2 diabetes mellitus with unspecified diabetic retinopathy without macular edema; E87.5 Hyperkalemia; I73.9 Peripheral vascular disease, unspecified; D63.8 Anemia in other chronic diseases classified elsewhere; R79.89 Other specified abnormal findings of blood chemistry; Z95.820 Peripheral vascular angioplasty status with implants and grafts; Z79.4 Long term (current) use of insulin; I25.2 Old myocardial infarction; Z87.891 Personal history of nicotine dependence

== ENCOUNTER 2016-11-08 13:35 | Emergency (ER) | payer MEDICARE, MEDICAID ==
[~2016-11-08 13:35] MED LIST changes: +CITROMA296 ML PO; +CLEOCIN HCL150 MG PO; +HYDROCHLOROTHIA25 MG PO
--- NOTE | 2016-11-15 15:58 | ER ---
ADMIT: 11/08/2016 RM/LOC: ER [facility] MR#: [id number] [address] [facility] [address] [place], [place] [address] JOSEPHINE CASTRO [facility] [place], [place] [address] Emergency Room Report SEX: M AGE: 60 : 1955 DATE: 11/08/2016 SUBJECTIVE: Josephine is a 60-year-old, male, who presents to the emergency room with hallucinations. He says it is worse at nighttime. He dreams inappropriate things he says. He feels very weak, sleepy. As a matter of fact, he was today at [facility] because he has a wound in his right foot and was sent to us for evaluation. Three weeks ago, he states that he had blood work at Dr. Ray's office, and he does have a history of depression, diabetes, CHF, hypertension. He had dialysis for 6 months, and he said now he does not anymore. He has had hypoglycemia, cellulitis, renal insufficiency, Parkinson's, cardiomyopathy, anemia of chronic disease, diabetic retinopathy, and peripheral vascular disease. He had stents in the right lower leg and then as a result, he ended up having some cellulitis and wound due to vesiculation. He says aspirin causes nausea. PHYSICAL EXAMINATION: VITAL SIGNS: Blood pressure 118/79 with a heart rate of 96, respirations 18, temperature is 96.8, O2 sats 100%. GENERAL: His speech is very slow. He does have tremors that are cogwheel, and his walking is kind of slow as well, but he uses a cane to ambulate. Rest of the physical examination is within normal limits except for the wound that he has on his right foot. LABORATORY AND X-RAY DATA: I started sepsis workup due to the fact that he has been cared for by [facility]. He is on antibiotics. He is diabetic and has poor vascular issues, but his white count was normal. His hemoglobin 9.9, also much better than he has had recently. Hematocrit is 29.9. Procalcitonin is less than 0.05. His calcium is 8.5, creatinine is 2.9, glucose 125 with a BUN of 59. Troponin less than 0.015. Lactate 0.2. INR less than 1.0. Ammonia level is 27, protein 2+. His EKG has prolonged QT interval, and we did compare it to most recent EKG, and this is a chronic situation. CLINICAL IMPRESSION: 1. Hallucination. ADMIT: 11/08/2016 RM/LOC: ER [facility] MR#: [id number] [address] [address] JOSEPHINE CASTRO [address] [place], [place] [address] Emergency Room Report SEX: M AGE: 60 : 1955 2. Renal insufficiency. 3. Anemia of chronic disease. I contacted Dr. Ray, who will see him on Friday. He wants to see all his medications and re-evaluate things up again. The thought here is that perhaps his medication for his Parkinson's maybe causing his side affects of hallucination. I went through his medications with Dr. Callahan, and I could not find anything that could be causing secondary side effects for the patient while he was in the ER to see if we could help him out. The patient was released with a strong follow up with Dr. Ray on Friday. TIFFANIE Chang / Homer Callahan MD / manan JOB #: [id number] CC: Homer Callahan MD, Attending Physician Med Ray MD, Family Physician Roberto Bonilla MD
[2016-12-10] MEDS ORDERED: SENOKOT S1 TAB PO (12:06)
[2016-12-10] MEDS ORDERED: GLYCOLAX527 GM PO (12:08)
[2017-02-28] MEDS ORDERED: VITAMIN D50000 UNIT PO (09:37)
[2017-02-28] MEDS ORDERED: AUGMENTIN 500-1 EACH PO (09:38)
== END 2016-11-08 18:28 | disposition home or self-care (01) ==
LOC: ER 13:35
DX: R44.3 Hallucinations, unspecified (principal); D63.8 Anemia in other chronic diseases classified elsewhere; N28.9 Disorder of kidney and ureter, unspecified; I11.0 Hypertensive heart disease with heart failure; I50.9 Heart failure, unspecified; E11.319 Type 2 diabetes mellitus with unspecified diabetic retinopathy without macular edema; I42.9 Cardiomyopathy, unspecified; G20 Parkinson's disease; I73.9 Peripheral vascular disease, unspecified; F32.9 Major depressive disorder, single episode, unspecified; Z99.2 Dependence on renal dialysis; Z88.6 Allergy status to analgesic agent; Z79.4 Long term (current) use of insulin; Z79.01 Long term (current) use of anticoagulants; Z79.899 Other long term (current) drug therapy